=== PATIENT | female | born 1960 | race Caucasian/White ===

== ENCOUNTER 2024-02-29 13:27 | Outpatient (AMB) | payer OTHER, SELFPAY ==
--- NOTE | 2024-02-29 13:57 | A.OFFVISCC_ITS ---
Intake Visit Reasons: MAt Allergies No Known Allergies Allergy (Verified 02/29/24 14:21) HPI HPI MAt: Details: Patient presents for intake and evaluation of alcohol use disorder Has been drinking 1-2 bottles of wine daily in the evenings 1/2-1 pack daily only when drinking Not taking care of her house like she used to friends and family aware of alcohol use and are supportive brother and father within 24 hours of eachother Medications -folica acid -lorazepam 1mg BID -NKDA - HTN--not on any medications surgeries--colon resection ovarian surgery Denies any history of withdrawal sx denies any history of treatment Review of Systems Const Reports as per HPI Physical Exam Const General: cooperative, healthy appearing, no acute distress and well groomed Assessment & Plan Assessment & Plan (1) Alcohol use disorder, moderate, dependence: Code(s): F10.20 - Alcohol dependence, uncomplicated Category: Medical Plan: * discussed alcohol taper * naltrexone * gabapentin to address any anxiety Medications: New naltrexone take 1/2 tab daily for 3 days then increase to one tab daily 50 mg PO DAILY 30 tabs 0RF gabapentin 100 mg PO BID PRN 10 caps 0RF anxiety
== END 2024-02-29 14:36 | disposition home or self-care (01) ==
PROVIDERS: Visit Provider Nurse Practitioner Psychiatric/Mental Health
DX: F10.20 Alcohol dependence, uncomplicated (principal)
CPT/HCPCS: 99204

== ENCOUNTER → 2024-02-29 13:27 | Outpatient (BNVA) | payer OTHER, SELFPAY | PROVIDERS: Visit Provider Nurse Practitioner Psychiatric/Mental Health ==

== ENCOUNTER 2024-03-09 13:08 | Outpatient (AMB) | payer OTHER, SELFPAY ==
--- NOTE | 2024-03-09 13:16 | A.OFFVISCC_ITS ---
Intake Visit Reasons: MAT Allergies No Known Allergies Allergy (Verified 02/29/24 14:21) HPI HPI MAT: Details: Patient presents for follow up last drink thursday evening sleep poor denies tremor, denies nausea did not need gabapentin Very tearful during visit feeling overwhelmed with emotions Discussed medication trials--prozac and zoloft--felt numb with them Review of Systems Const Reports as per HPI and Reports no additional complaints Physical Exam Const General: cooperative, healthy appearing, anxious and well groomed Results Reviewed Results Reviewed: Laboratory Last Values POC Urine Buprenorphine Negative 03/09/24 16:25 POC Urine Morphine Negative 03/09/24 16:25 POC Urine Oxycodone Negative 03/09/24 16:25 POC Urine Methadone Negative 03/09/24 16:25 POC Urine Propoxyphene Negative 03/09/24 16:25 POC Urine Barbiturates Negative 03/09/24 16:25 POC U Tricyclic Antidpr Negative 03/09/24 16:25 POC Urine PCP Negative 03/09/24 16:25 POC Ur Amphetamines Negative 03/09/24 16:25 POC Ur Methamphetamine Negative 03/09/24 16:25 POC Urine MDMA Negative 03/09/24 16:25 POC Ur Benzodiazepine Positive 03/09/24 16:25 POC Urine Cocaine Negative 03/09/24 16:25 POC Ur Marijuana (THC) Negative 03/09/24 16:25 Assessment & Plan Assessment & Plan (1) Alcohol use disorder, moderate, dependence: Code(s): F10.20 - Alcohol dependence, uncomplicated Category: Medical Plan: * mirtazipine 7.5mg QHS * follow up 2 weeks Orders: Orders AMB 14 Panel Urine Drug Screen 03/09/24 Z51.81 - Encounter for therapeutic drug level monitoring Medications: New thiamine HCl (vitamin B1) 100 mg PO DAILY 90 tabs 0RF folic acid 1 mg PO DAILY 90 tabs 0RF mirtazapine 7.5 mg PO BEDTIME 30 tabs 0RF Discontinued gabapentin Discontinued Reason: Patient Completed Course 100 mg PO BID PRN 10 caps 0RF anxiety
== END 2024-03-09 13:50 | disposition home or self-care (01) ==
PROVIDERS: Visit Provider Nurse Practitioner Psychiatric/Mental Health
DX: F10.20 Alcohol dependence, uncomplicated (principal)
CPT/HCPCS: 99214

== ENCOUNTER → 2024-03-09 13:08 | Outpatient (BNVA) | payer OTHER, SELFPAY | PROVIDERS: Visit Provider Nurse Practitioner Psychiatric/Mental Health | DX: F10.20 Alcohol dependence, uncomplicated (principal) | CPT/HCPCS: 80307 ==

== ENCOUNTER 2024-03-28 14:02 | Outpatient (AMB) | payer OTHER, SELFPAY ==
--- NOTE | 2024-03-28 14:07 | A.OFFVISCC_ITS ---
Intake Visit Reasons: MAT Allergies No Known Allergies Allergy (Verified 02/29/24 14:21) HPI HPI MAT: Details: Patient presents for follow up for AUD 3 weeks with no alcohol did not start mirtazipine --wanted to try feeling things does not feel as labile as previously appetite improved anxiety much improved yoshi in AM reports minimal to no thoughts of drinking tolerating naltrexone heard from [facility] and will be speaking with her on Thursday Review of Systems Const Reports as per HPI and Reports no additional complaints Physical Exam Const General: cooperative, healthy appearing, no acute distress and well groomed Nutritional Appearance: average body habitus Orientation/consciousness: patient oriented x3 Limitations: no limitations Neuro General: patient oriented x3 Psych Appearance: well kempt Speech and movement: Normal speech and movement present Affect: normal affect Assessment & Plan Assessment & Plan (1) Alcohol use disorder, moderate, dependence: Code(s): F10.20 - Alcohol dependence, uncomplicated Category: Medical Plan: * continue naltrexone at current dose * relapse prevention discussion and worksheets provided * follow up 4 weeks Medications: Changed From naltrexone take 1/2 tab daily for 3 days then increase to one tab daily 50 mg PO DAILY 30 tabs 0RF To naltrexone 50 mg PO DAILY 90 tabs 0RF
== END 2024-03-28 15:26 | disposition home or self-care (01) ==
PROVIDERS: Visit Provider Nurse Practitioner Psychiatric/Mental Health
DX: F10.20 Alcohol dependence, uncomplicated (principal)
CPT/HCPCS: 99213

== ENCOUNTER → 2024-03-28 14:02 | Outpatient (BNVA) | payer OTHER, SELFPAY | PROVIDERS: Visit Provider Nurse Practitioner Psychiatric/Mental Health ==

== ENCOUNTER 2024-04-25 15:26 | Outpatient (AMB) | payer OTHER, SELFPAY ==
--- NOTE | 2024-04-25 15:28 | A.OFFVISCC_ITS ---
Intake Visit Reasons: MAT Allergies No Known Allergies Allergy (Verified 02/29/24 14:21) HPI HPI MAT: Details: Patient presents for AUD treatment follow up Currently prescribed Naltrexone 50mg daily Therapy once per week --[facility] ([facility]bigail) feeling good related to her recovery reviewed recovery resources and relapse prevention Review of Systems Const Reports as per HPI and Reports no additional complaints Physical Exam Const General: cooperative, healthy appearing, no acute distress and well groomed Nutritional Appearance: average body habitus Orientation/consciousness: patient oriented x3 Limitations: no limitations Neuro General: patient oriented x3 Psych Appearance: well kempt Speech and movement: Normal speech and movement present Affect: normal affect Assessment & Plan Assessment & Plan (1) Alcohol use disorder, moderate, dependence: Code(s): F10.20 - Alcohol dependence, uncomplicated Category: Medical Plan: * relapse prevention discussion * continue naltrexone * follow up as scheduled Medications: Discontinued mirtazapine Discontinued Reason: Patient no longer taking 7.5 mg PO BEDTIME 30 tabs 0RF
== END 2024-04-25 16:32 | disposition home or self-care (01) ==
PROVIDERS: Visit Provider Nurse Practitioner Psychiatric/Mental Health
DX: F10.20 Alcohol dependence, uncomplicated (principal)
CPT/HCPCS: 99213

== ENCOUNTER → 2024-04-25 15:26 | Outpatient (BNVA) | payer OTHER, SELFPAY | PROVIDERS: Visit Provider Nurse Practitioner Psychiatric/Mental Health ==

== ENCOUNTER 2024-06-06 15:35 | Outpatient (AMB) | payer OTHER, SELFPAY ==
--- NOTE | 2024-06-06 15:48 | A.OFFVISCC_ITS ---
Intake Visit Reasons: MAT Allergies No Known Allergies Allergy (Verified 02/29/24 14:21) Medication List - Last Reconciled 06/06/24 by Louise Griffith CNP folic acid 1 mg PO DAILY lorazepam 1 mg PO BID PRN naltrexone 50 mg PO DAILY thiamine HCl (vitamin B1) 100 mg PO DAILY HPI HPI MAT: Details: Patient presents for follow up for AUD BP has improved Reporting hot flash following naltrexone administration 1-2x/day top of her body Since last appt has been seeing medical providers Liver specialist --follow up one year Still seeing therapist at [facility] Considering IOP admission Review of Systems Const Reports as per HPI Physical Exam Const General: cooperative, healthy appearing, comfortable and well groomed Nutritional Appearance: average body habitus Orientation/consciousness: patient oriented x3 Limitations: no limitations Neuro General: patient oriented x3 Psych Thought process: Normal thought process present Thought content: Normal thought content present Insight: Good insight present (Psych) Judgement: Good judgement present (Psych) Assessment & Plan Assessment & Plan (1) Alcohol use disorder, moderate, dependence: Code(s): F10.20 - Alcohol dependence, uncomplicated Category: Medical Plan: * relapse prevention discussion * follow up 6 weeks * encouraged to call office if needed before next appt Medications: Refilled folic acid 1 mg PO DAILY 90 tabs 0RF
== END 2024-06-06 16:19 | disposition home or self-care (01) ==
PROVIDERS: Visit Provider Nurse Practitioner Psychiatric/Mental Health
DX: F10.20 Alcohol dependence, uncomplicated (principal)
CPT/HCPCS: 99213